=== PATIENT | male | born 1960 | race Hispanic/Latino ===

== ENCOUNTER → 2018-07-05 | Outpatient (CLI) | payer MEDICARE ==
--- NOTE | 2018-07-05 14:30 | Diagnostic Imaging Report ---
EXAM: Renal Ultrasound INDICATION: Hydronephrosis. COMPARISON: None TECHNIQUE: Transverse and longitudinal images of the kidneys and bladder were obtained. FINDINGS: Right Kidney: Length: Measures 11.8 x 5.9 x 5.8 cm Appearance: Normal echogenicity. Collecting system: Moderate hydronephrosis Stones: None Cyst/Mass: None Left Kidney: Length: Measures 10.3 x 5.7 x 6.5 cm Appearance: Normal echogenicity. Collecting system: Moderate hydronephrosis Stones: None Cyst/Mass: None Bladder: Mild bladder wall thickening. Pate catheter is present. IMPRESSION: Moderate bilateral hydronephrosis. No evidence of stone. Pate catheter present in the bladder. Mild bladder wall thickening, which may partially reflect cystitis or underdistention in the appropriate clinical context. Signed by: Dr. Angelita Duran MD on 07/05/2018 2:27 PM
== END ==
LOC: US 13:22
PROVIDERS: ATTEND Family Medicine
DX: N13.30 Unspecified hydronephrosis (principal)
CPT/HCPCS: 76770